=== PATIENT | female | born 1940 | race Caucasian/White ===

== ENCOUNTER 2019-06-15 09:16 | Observation (INO) | payer MEDICARE, SELFPAY ==
[2019-06-15] VITALS (39 sets, daily range): BP systolic 138–173; BP diastolic 74–94; PULSE 62–82; RESP 16–25; TEMP 36.5–37.1; O2SAT 93–98; BMI 34.0
--- NOTE | 2019-06-15 09:31 | ED_ITS ---
HPI - General Adult General: Chief complaint: General Medical Stated complaint: SENT BY DR JONES Time Seen by Provider: 06/15/19 09:31 Source: patient Mode of arrival: ambulatory Limitations: no limitations History of Present Illness: HPI narrative: 78-year-old female patient comes in today for concerns elevated INR. Patient had lab work done at Dr. Hoyos's office yesterday and was contacted this morning to come to the emergency room for reevaluation of lab work. Patient denies any bleeding but does have a bruise to her right thigh. Patient appears well. Patient appears in no pain. Review of Systems General: Reports: 10 or more systems reviewed and unremarkable except in HPI and below Skin/Breast: Reports: other (bruise right thigh) PFSH ED PFSH: Statuses (acute, chronic, etc) shown below reflect problem list status as previously entered and may not be historically accurate Social History Smoking and tobacco status: never smoked Physical Exam Const: COMMON NORMALS: no apparent distress and oriented x3 GENERAL APPEARANCE: cooperative HENMT: COMMON NORMALS: normocephalic, external ears normal, EAC's normal, TM's normal bilaterally and external nose normal HEAD & SCALP: normal to inspection and normocephalic FACE & SINUS: normal facial exam NOSE: external nose normal GENERAL EAR: hearing not grossly impaired EXTERNAL EAR: Yes external ears normal EXTERNAL AUDITORY CANAL: EAC's normal TYMPANIC MEMBRANE: TM's normal bilaterally MOUTH: oral and palatal mucosa normal THROAT: posterior oropharynx normal Eye: COMMON NORMALS: PERRL and EOMs intact bilaterally PUPIL: Yes PERRL Neck/C-Spine: COMMON NORMALS: full ROM and no lymphadenopathy Lymph: LYMPHATIC: no lymphedema noted Chest: COMMONS NORMALS: inspection of chest normal and palpation of chest normal Resp: COMMON NORMALS: normal respiratory effort and clear to auscultation bilaterally AUSCULTATION: clear to auscultation bilaterally Cardio: COMMON NORMALS: regular rate and regular rhythm RATE: regular rate RHYTHM: regular rhythm GI: COMMON NORMALS: normal to inspection, nondistended, normoactive bowel sounds and non-tender : COMMON NORMALS: Yes no CVA tenderness BLADDER/KIDNEY EXAM: Yes no CVA tenderness Back/Pelvis: COMMON NORMALS: no CVA tenderness and thoracic and lumbar spine normal to inspection Extremity: COMMON NORMALS: normal to inspection GENERAL: No edema Neuro: COMMON NORMALS: oriented x3, moves all extremities and no focal motor deficits Psych: COMMON NORMALS: mental status grossly normal and cooperative Skin: NARRATIVE SKIN EXAM: quarter coin size bruise to right anterior thigh, no redness or swelling to the leg Course ED course: 1040, discussed with Dr. Simmons regarding abnormal lab with INR greater than 11, he agreed with plan and will discuss with hospitalist for admission to observation. Vital Signs: Vital signs: Vital Signs Temperature 97.7 F 06/15/19 09:21 Pulse Rate 62 06/15/19 11:45 Respiratory Rate 16 06/15/19 09:21 Blood Pressure 138/77 06/15/19 11:45 Pulse Oximetry 95 06/15/19 11:45 MDM - General Adult MDM Narrative: Medical decision making narrative: Patient was seen here for co ncerns of elevated INR from her primary care office. On exam patient appears well. Patient reports no bleeding. Patient does have a bruise to her right anterior thigh that is coin size approximately 3 cm in diameter. Patient denies any other injury or bruises. Respirations are even lungs are clear to auscultation. Differential diagnosis includes hypercoagulability due to warfarin therapy, mechanical heart valve, contusion to leg. Laboratory values notes some mild anemia at 10 and 32 H&H, alkaline phosphatase is slightly high at 140. PTT was 150, INR was 11. Patient was given 10 mg of vitamin K in the emergency room. Dr. Simmons was consulted for concern of abnormal labs and he agreed that patient needed admission for observation. Patient needs admission for monitoring of lab and reversal of hypercoagulability. Lab Data: Labs: Lab Results 06/15/19 06/15/19 06/15/19 Range/Units 09:49 09:49 09:49 WBC 11.2 H (4.0-10.0) 10^3/ uL RBC 3.62 L (4.1-5.3) 10^6/u L Hgb 10.0 L (11.5-15.3) g/dL Hct 32.0 L (37.0-47.0) % MCV 88.4 (81-99) fL MCH 27.6 L (28.0-34.0) pg MCHC 31.3 (30.0-36.0) g/dL RDW 15.1 (12.1-15.1) % Plt Count 449 H (130-400) 10^3/c mm MPV 8.5 (7.4-10.4) fL Neut % (Auto) 78.2 % Lymph % (Auto) 13.1 % Person % (Auto) 6.7 % Eos % (Auto) 1.0 % Baso % (Auto) 0.4 % Neut # (Auto) 8.8 H (1.8-7.7) 10^3/u L Lymph # (Auto) 1.5 (0.8-4.8) 10^3/u L Person # (Auto) 0.8 (0.2-0.9) 10^3/u L Eos # (Auto) 0.1 (0.0-0.8) 10^3/u L Baso # (Auto) 0.0 (0.0-0.1) 10^3/u L Nucleated RBC % (a uto) 0 % Nucleated RBCs # 0.0 /100WBC PT 96.70 H (10.5-13.3) SECO NDS INR 11.96 H* (0.8-1.2) APTT 156.0 H* (23.9-36.7) SECO NDS Sodium 138 (136-145) mmol/L Potassium 4.5 (3.5-5.1) mmol/L Chloride 101 (98-107) mmol/L Carbon Dioxide 28 (22-29) mmol/L Anion Gap 13.5 (5-19) BUN 22 (8-23) mg/dL Creatinine 0.9 (0.5-0.9) mg/dL Glucose 131 H (65-115) mg/dL Calcium 9.6 (8.5-10.5) mg/dL Total Bilirubin 0.4 (0.15-1.2) mg/dL AST 17 (0-32) U/L ALT 16 (0-33) U/L Alkaline Phosphata se 141 H (35-105) IU/L Total Protein 7.5 (6.6-8.7) g/dL Albumin 4.0 (3.5-5.2) g/dL Globulin 3.5 (1.3-4.6) g/dL Digoxin (0.6-1.2) ng/mL 06/15/19 Range/Units 09:49 WBC (4.0-10.0) 10^3/ uL RBC (4.1-5.3) 10^6/u L Hgb (11.5-15.3) g/dL Hct (37.0-47.0) % MCV (81-99) fL MCH (28.0-34.0) pg MCHC (30.0-36.0) g/dL RDW (12.1-15.1) % Plt Count (130-400) 10^3/c mm MPV (7.4-10.4) fL Neut % (Auto) % Lymph % (Auto) % Person % (Auto) % Eos % (Auto) % Baso % (Auto) % Neut # (Auto) (1.8-7.7) 10^3/u L Lymph # (Auto) (0.8-4.8) 10^3/u L Person # (Auto) (0.2-0.9) 10^3/u L Eos # (Auto) (0.0-0.8) 10^3/u L Baso # (Auto) (0.0-0.1) 10^3/u L Nucleated RBC % (a uto) % Nucleated RBCs # /100WBC PT (10.5-13.3) SECO NDS INR (0.8-1.2) APTT (23.9-36.7) SECO NDS Sodium (136-145) mmol/L Potassium (3.5-5.1) mmol/L Chloride (98-107) mmol/L Carbon Dioxide (22-29) mmol/L Anion Gap (5-19) BUN (8-23) mg/dL Creatinine (0.5-0.9) mg/dL Glucose (65-115) mg/dL Calcium (8.5-10.5) mg/dL Total Bilirubin (0.15-1.2) mg/dL AST (0-32) U/L ALT (0-33) U/L Alkaline Phosphata se (35-105) IU/L Total Protein (6.6-8.7) g/dL Albumin (3.5-5.2) g/dL Globulin (1.3-4.6) g/dL Digoxin 1.7 H (0.6-1.2) ng/mL Discharge Plan Discharge Patient Disposition: Placed in Observation Clinical Impression: Acquired hypercoagulable state, Mechanical heart valve present Condition: Stable Referrals: Danny Jones DO [Family Provider] - Coding Level of Care Code ED [employer] for Mike[employer] Fwd Exam Problem Focused
--- NOTE | 2019-06-15 09:39 | PC.NURSE ---
small bruise noted to right upper thigh on anterior portion
[2019-06-15 09:57] LABS: Basophils % 0.4 %; Eosinophils # 0.1 10^3/uL (0.0-0.8); Lymphocytes # 1.5 10^3/uL (0.8-4.8); Lymphocytes % 13.1 %; Mean Corpuscular HGB Conc 31.3 g/dL (30.0-36.0); Mean Corpuscular Hemoglobin 27.6 pg (28.0-34.0); Mean Corpuscular Volume 88.4 fL (81-99); Mean Platelet Volume 8.5 fL (7.4-10.4); Monocytes # 0.8 10^3/uL (0.2-0.9); Monocytes % 6.7 %; Neutrophils # 8.8 10^3/uL (1.8-7.7); Neutrophils % 78.2 %; Nucleated Red Blood Cells % 0 %; Platelet Count 449 10^3/cmm (130-400); Red Blood Count 3.62 10^6/uL (4.1-5.3); Red Cell Distribution Width 15.1 % (12.1-15.1); White Blood Count 11.2 10^3/uL (4.0-10.0)
[2019-06-15 10:16] LABS: Alanine Aminotransferase 16 U/L (0-33); Alkaline Phosphatase 141 IU/L (35-105); Anion Gap 13.5 (5-19); Aspartate Amino Transferase 17 U/L (0-32); Blood Urea Nitrogen 22 mg/dL (8-23); Calcium 9.6 mg/dL (8.5-10.5); Carbon Dioxide 28 mmol/L (22-29); Chloride 101 mmol/L (98-107); Globulin 3.5 g/dL (1.3-4.6); Glucose 131 mg/dL (65-115); Potassium 4.5 mmol/L (3.5-5.1); Sodium 138 mmol/L (136-145); Total Bilirubin 0.4 mg/dL (0.15-1.2); Total Protein 7.5 g/dL (6.6-8.7)
[2019-06-15 10:27] LABS: INR 11.96 (0.8-1.2)
[2019-06-15] MEDS: phytonadione (ADULT) 10 mg/mL Ampule 1 mL SUBCUT (11:15)
--- NOTE | 2019-06-15 11:24 | CTR_ITS ---
PROCEDURE INFORMATION: Exam: CTA Right Lower Extremity With Contrast Exam date and time: 06/15/2019 11:40 AM Age: 78 years old Clinical indication: Pain; Patient HX: Small hematoma to right thigh. Inr of 12. Patient on warfarin. TECHNIQUE: Imaging protocol: CTA images of the Right lower extremity with intravenous contrast using CT angiography protocol. 3D rendering: MIP and/or 3D reconstructed images were created by the technologist. Total DLP: 999.09 mGy-cm Radiation optimization: All CT scans at this facility use at least one of these dose optimization techniques: automated exposure control; mA and/or kV adjustment per patient size (includes targeted exams where dose is matched to clinical indication); or iterative reconstruction. Contrast material: OMNI 350; Contrast volume: 95 ml; Contrast route: 20G; COMPARISON: No relevant prior studies available. FINDINGS: Right femoral/popliteal arteries: No occlusion or significant stenosis. Right infrapopliteal arteries: No occlusion or significant stenosis. Other arteries: Regarding the vasculature, external iliac artery and common femoral artery are normal. Superficial femoral artery normal. Popliteal artery only faintly opacified. Stomach and bowel: Soft tissue prominence about the cecum/ascending colon. Recommend followup. 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 Soft tissues: Hematoma in the musculature of the proximal thigh likely the vastus lateralis with a small amount of contrast extravasation likely from a profunda branch. CT/CT angio [facility] [id number] IMPRESSION: 1. Hematoma in the musculature of the proximal thigh likely the vastus lateralis with a small amount of contrast extravasation likely from a profunda branch. Hematoma is rather ill-defined likely measuring approximately 3-5 cm. 2. 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 Severe degenerative changes in the knee most pronounced medially. 3. Soft tissue prominence about the cecum/ascending colon. Recommend followup. See image #1 series 3 Radiation Dose CTDIVOL = (mGy): DLP = 999.09 (mGy-cm)
[2019-06-15 11:38] LABS: Digoxin 1.7 ng/mL (0.6-1.2)
--- NOTE | 2019-06-15 11:47 | PC.NURSE ---
pt transported to CT with stretcher by tech
[2019-06-15] MEDS: iohexol 350 mg/mL 100 mL Btl IV (11:53)
[2019-06-15] MEDS: HYDROcodone-acetaminophen 5-325 mg Tablet 1 TAB PO (13:12)
--- NOTE | 2019-06-15 15:24 | P.HP_ITS ---
Providers/Chief Complaint Admitting Physician: Matthew Soto MD Chief Complaint: Supratherapeutic INR History of Present Illness Kimberly Masterson is a 78 year old female with past medical history of hypertension, atrial fibrillation, mitral valve replacement, on chronic Coumadin who was sent in to the hospital today by her primary care physician because of an elevated INR. Patient states he usually takes warfarin 3 mg every day for many years but her INR has been fluctuant recently so the medication was increased to 2 mg 2 weeks ago. Patient thinks she might have by mistake taken 1-1/2 tablets every day for last 1 week instead of the prescribed medications. Patient denies of having bleeding from any place except occasional epistaxis. She denies of having hematemesis, melena, nausea, vomiting, palpitations, headache. Patient does complain of dizziness every morning for last 2 days. She denies of having any fall, trauma, loss of consciousness. In the ER her INR was found to be over 11 and she had a CTA done which showed hematoma in the musculature of right thigh. Review of Systems Const: Denies: fever, chills, body aches, change in appetite, malaise, night sweats, diaphoresis, change in sleep pattern, daytime sleepiness or snoring Eyes: Denies: change in vision, blurry vision, photophobia, eye discomfort or eye discharge ENMT: Denies: throat pain, enlarged tonsils, hoarseness, mouth pain, oral sores/lesions, dry mouth, tinnitus, nasal congestion or post nasal drip Card: Denies: chest pain, palpitations, irregular heart rhythm, edema, swelling of feet/ankles, lightheadedness, syncope, pre-syncope, shortness of breath on exertion, shortness of breath when lying down, leg pain with exertion or bluish discoloration of hands/feet Resp: Denies: shortness of breath, productive cough, non-productive cough, wheezing, stridor, pain on inspiration, change in phlegm color, coughing up blood or chest congestion GI: Denies: abdominal pain, nausea, vomiting, vomiting blood, coffee grounds in vomit, difficulty swallowing, heartburn/indigestion, diarrhea, constipation, bloating, cramping, change in bowel habits, painful bowel movements, blood in stool or black tarry stool : Denies: flank pain, painful urination, urinary frequency, urinary urgency, urinary hesitancy, nighttime urination or blood in urine Musc: Denies: neck pain, back pain, extremity pain, joint pain, joint swelling, redness, joint stiffness or limited range of motion Neuro: Reports: dizziness; Denies: headache, numbness in extremities, weakness in extremities, changes in sensation, lack of coordination, difficulty walking, frequent falls, vertigo, confusion, slurred speech, difficulty communicating thoughts or seizure-like activity Psych: Denies: anxiety, depression, mood swings, panic attacks, hopelessness or irritability Endo: Denies: excessive urination, excessive thirst, tired all the time, cold intolerance, excessive sweating, flushing or heat intolerance Bertin/Lymph: Denies: easy bruising or easy bleeding All/Imm: Denies: tongue swelling, facial swelling or acute wheezing Medications/Allergies Home Medications Medication Instructions Recorded Confirmed Last Taken Type atorvastatin 10 mg PO QPM 06/15/19 06/15/19 06/14/19 History carvedilol 3.125 mg PO BID 06/15/19 06/15/19 06/14/19 History digoxin 250 mcg PO DAILY 06/15/19 06/15/19 06/14/19 History furosemide 40 mg PO QAM 06/15/19 06/15/19 06/14/19 History gabapentin 400 mg PO TID 06/15/19 06/15/19 06/14/19 History lorazepam 1 - 2 mg PO BID 06/15/19 06/15/19 06/14/19 History metformin 500 mg PO BID 06/15/19 06/15/19 06/14/19 History omeprazole 20 mg PO DAILY 06/15/19 06/15/19 06/14/19 History potassium chloride 20 meq PO DAILY 06/15/19 06/15/19 06/14/19 History spironolactone 25 mg PO DAILY 06/15/19 06/15/19 06/14/19 History warfarin 4 mg PO DAILY 06/15/19 06/15/19 06/14/19 History Allergies Allergy/AdvReac Type Severity Reaction Status Date / Time No Known Allergies Allergy Verified 06/15/19 09:30 PFSH Acute PFSH: Statuses (acute, chronic, etc) shown below reflect problem list status as previously entered and may not be historically accurate Medical History (Updated 06/15/19 @ 15:29 by Matthew Soto MD) Atrial fibrillation (Acute) GERD (gastroesophageal reflux disease) (Acute) HTN (hypertension) (Acute) Surgical History (Updated 06/15/19 @ 15:27 by Matthew Soto MD) H/O mitral valve replacement (Acute) Family History (Updated 06/15/19 @ 15:29 by Matthew Soto MD) Other Hypertension Social History (Updated 06/15/19 @ 15:29 by Matthew Soto MD) Smoking and tobacco status: never smoked Alcohol intake: never Substance/Drug Use: never Household members: none Housing: House Vitals/I&O/Wt Last Vital Signs Temp 97.7 F 06/15/19 14:51 Pulse 73 06/15/19 14:51 Resp 21 H 06/15/19 14:51 BP 145/87 06/15/19 14:51 Pulse Ox 93 06/15/19 14:51 Weight last 48 hrs Weight 87.09 kg Physical Exam Narrative: EXAM NARRATIVE: General: No acute distress, AO x3 HEENT: PERRLA, pupils bilaterally equal and reactive Chest: Normal vesicular breath sounds, no added sounds, equal good air entry bilaterally CVS: S1-S2 regular, no murmurs, no tachycardia, no gallops, no rubs Abdomen: Soft, nontender, no organomegaly, bowel sounds present Neuro: No focal deficits, no facial deformity, AO x3, power 5/5 in all limbs Extremities: Tender right thigh with a bruise in the anterior region. Bilateral pulses equal. Data : 06/15/19 09:49 06/15/19 09:49 A&P Assessment and plan (1) Supratherapeutic INR: Status: Acute Code(s): R79.1 - Abnormal coagulation profile (2) Mechanical heart valve present: Status: Acute Code(s): Z95.2 - Presence of prosthetic heart valve (3) HTN (hypertension): Status: Acute Code(s): I10 - Essential (primary) hypertension (4) H/O mitral valve replacement: Status: Acute Code(s): Z95.2 - Presence of prosthetic heart valve Additional A&P Information Supratherapeutic INR: Target INR 2-3. Hold off Coumadin for now. Given an active hematoma in the right thigh will reverse her INR with 2 units of FFP. Patient already received vitamin K in the ER. Repeat INR after 2 units of FFP. We will hold off on any further vitamin K for now until repeat INR. Fall precautions, seizure precautions. Bedrest. Patient is complaining of mild dizziness on and off. Will check a CT head to rule out intracranial hemorrhage. We will try to keep her systolic blood pressure less than 160 mmHg. Will give hydralazine 5 mg every 4 hours as needed for systolic blood pressure more than 160 mmHg. Hematoma: Most likely reason for anemia. Most likely due to supratherapeutic IN R. Ice pack. Anemia: We will check iron panel. We will transfuse this hemoglobin less than 8. We will do blood type. Hypertension: Continue home dose of carvedilol. Atrial fibrillation: Patient is in rate controlled rate right now. Continue home dose of carvedilol. Digoxin level is elevated. We will hold off on digoxin for now. Will check repeat digoxin level tomorrow morning. Patient would most likely need digoxin every other day now on discharge. Telemetry monitoring. History of mitral valve replacement: Did discuss in detail with the patient that reversing the INR can sometimes potentially lead to stroke valve. Patient states she is understands the risk and is agreeable to the plan of treatment. Keep saturation 92%. Continue with home dose of Lasix and spironolactone. Type 2 diabetes mellitus: Blood sugar checks with meals and at bedtime. Continue on home dose of metformin for now. We will hold off on insulin sliding scale because that would mean multiple subcutaneous injections which can potentiate her to have more hematomas given supratherapeutic INR. Full code. Cardiac diet. Hold off on mechanical and therapeutic prophylaxis for DVT. Reason is supratherapeutic INR. Attestations Medical Necessity Statement*: Patient would need admission for most likely more than 2 midnights for supratherapeutic INR. 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
--- NOTE | 2019-06-15 15:36 | CTR_ITS ---
PROCEDURE INFORMATION: Exam: CT Head Without Contrast Exam date and time: 06/15/2019 5:30 PM Age: 78 years old Clinical indication: Other: R/O stroke; Additional info: Rule out stroke TECHNIQUE: Imaging protocol: Computed tomography of the head without contrast. Total DLP: 818.11 mGy-cm Radiation optimization: All CT scans at this facility use at least one of these dose optimization techniques: automated exposure control; mA and/or kV adjustment per patient size (includes targeted exams where dose is matched to clinical indication); or iterative reconstruction. COMPARISON: CT head wo con* [id number] 07/24/2014 12:53 AM FINDINGS: Brain: There is encephalomalacia in the posterior left frontal/parietal lobe. There is mild diffuse volume loss and periventricular low density compatible with small vessel disease changes. There is no acute hemorrhage, edema or mass effect. 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 Ventricles: Normal. No ventriculomegaly. Bones/joints: Unremarkable. No acute fracture. Sinuses: Visualized sinuses are unremarkable. No fluid levels. Mastoid air cells: Visualized mastoid air cells are well aerated. Soft tissues: Unremarkable. CT/CT head wo con* [id number] IMPRESSION: Chronic findings as above. No acute intracranial abnormality. Radiation Dose CTDIVOL = (mGy): DLP = 818.11 (mGy-cm)
[2019-06-15 16:08] LABS: Thyroid Stimulating Hormone 1.75 uIU/mL (0.27-4.20)
[2019-06-15 16:19] LABS: Glucose Point of Care 137 mg/dL (70-110)
[2019-06-15 16:53] LABS: Iron 39 ug/dL (37-145); Percent Saturation 13.1 % (20-50); Total Iron Binding Capacity 297 mcg/dl; Unsaturated Iron Binding 258 ug/dL (112-347)
[2019-06-15] MEDS: metformin 500 mg Tablet PO (19:12)
[2019-06-15] MEDS: LORazepam 2 mg Tablet 1 MG PO (19:12)
[2019-06-15] MEDS: atorvastatin 40 mg Tablet 20 MG PO (19:12)
[2019-06-15] MEDS: carvedilol 3.125 mg Tablet PO (19:13)
[2019-06-15] MEDS: gabapentin 400 mg Capsule PO (20:56)
[2019-06-16] VITALS (8 sets, daily range): BP systolic 138–153; BP diastolic 85–98; PULSE 78–90; RESP 17–27; TEMP 36.8; O2SAT 92–96; BMI 34.9
[2019-06-16 00:59] LABS: Hematocrit 28.4 % (37.0-47.0); Hemoglobin 8.7 g/dL (11.5-15.3)
--- NOTE | 2019-06-16 01:12 | PC.NURSE ---
DR WAS CALLED BECAUSE PT C/O BACK PAIN. DR ORDERED 1MG MORPHINE IVP X1. RN WILL ADMINISTER PUSH. WILL CONTINUE TO MONITOR.
[2019-06-16 01:25] LABS: INR 1.55 (0.8-1.2)
[2019-06-16] MEDS: morphine 4 mg/mL SDV 1 mL 1 MG IVP (01:29)
[2019-06-16 03:45] LABS: Basophils % 0.3 %; Eosinophils # 0.1 10^3/uL (0.0-0.8); Hematocrit 29.8 % (37.0-47.0); Hemoglobin 9.3 g/dL (11.5-15.3); Lymphocytes # 1.6 10^3/uL (0.8-4.8); Lymphocytes % 12.1 %; Mean Corpuscular HGB Conc 31.2 g/dL (30.0-36.0); Mean Corpuscular Hemoglobin 28.9 pg (28.0-34.0); Mean Corpuscular Volume 92.5 fL (81-99); Mean Platelet Volume 9.2 fL (7.4-10.4); Monocytes # 0.9 10^3/uL (0.2-0.9); Monocytes % 6.4 %; Neutrophils # 10.7 10^3/uL (1.8-7.7); Neutrophils % 79.6 %; Nucleated Red Blood Cells % 0 %; Platelet Count 457 10^3/cmm (130-400); Red Blood Count 3.22 10^6/uL (4.1-5.3); Red Cell Distribution Width 15.3 % (12.1-15.1); White Blood Count 13.5 10^3/uL (4.0-10.0)
[2019-06-16 03:57] LABS: Anion Gap 16.5 (5-19); Blood Urea Nitrogen 16 mg/dL (8-23); Calcium 9.7 mg/dL (8.5-10.5); Carbon Dioxide 28 mmol/L (22-29); Chloride 96 mmol/L (98-107); Glucose 143 mg/dL (65-115); Osmolality Calculated 281 mOsm/kg (285-295); Potassium 4.5 mmol/L (3.5-5.1); Sodium 136 mmol/L (136-145)
[2019-06-16 04:03] LABS: INR 1.48 (0.8-1.2)
[2019-06-16] MEDS: FUROsemide 40 mg Tablet PO (05:41)
[2019-06-16 08:20] LABS: Digoxin 1.3 ng/mL (0.6-1.2)
[2019-06-16] MEDS: ipratropium-albuterol 3 mL Neb INHALATION (08:49)
[2019-06-16] MEDS: spironolactone 25 mg Tablet PO (09:32)
[2019-06-16] MEDS: pantoprazole DR 40 mg Tablet PO (09:32)
[2019-06-16] MEDS: gabapentin 400 mg Capsule PO (09:32)
[2019-06-16] MEDS: carvedilol 3.125 mg Tablet PO (09:32)
[2019-06-16] MEDS: metformin 500 mg Tablet PO (09:34)
[2019-06-16] MEDS: acetaminophen 325 mg Tablet PO (09:37)
--- NOTE | 2019-06-16 09:47 | PM.DCS ---
Discharge Providers Date of Admission: 06/15/19 12:38 Date of Discharge: Date of Discharge: June 16, 2019 Attending Provider at Admission: Matthew Soto MD Attending Provider at Discharge: Matthew Soto MD Diagnoses at Discharge Discharge Diagnosis (1) Supratherapeutic INR: Status: Acute (2) Mechanical heart valve present: Status: Acute (3) HTN (hypertension): Status: Acute (4) H/O mitral valve replacement: Status: Acute Reason for Visit Reason for Visit: Reason For Visit: Supratherapeutic INR Hospital Course Discharge Summary: Kimberly Masterson is a 78 year old female with past medical history of hypertension, atrial fibrillation, mitral valve replacement, on chronic Coumadin who was sent in to the hospital today by her primary care physician because of an elevated INR. Patient states he usually takes warfarin 3 mg every day for many years but her INR has been fluctuant recently so the medication was increased to 2 mg 2 weeks ago. Patient thinks she might have by mistake taken 1-1/2 tablets every day for last 1 week instead of the prescribed medications. Patient denies of having bleeding from any place except occasional epistaxis. In the ER patient was found to have tenderness in the thyroid so a CT scan was done which revealed hematoma in thigh measuring up to 3 to 5 cm. Patient's INR was reversed in the ER by FFP and vitamin K. Patient's INR responded well to the reversal and patient remained in sinus rhythm without any shortness of breath or nausea or vomiting. Given the history of mitral valve replacement patient was started back on warfarin on the day of discharge but was not made therapeutic due to active hematoma from 2 days ago. Patient has been advised to take 3 and 4 mg of Coumadin every alternate days. As patient lives by herself and takes care of her own medications to prevent from further confusion home health services were provided to the patient. Patient remained hemodynamically stable, at baseline oxygen supplementation of room air without any nausea or vomiting or any other bleeding events during her hospitalization and is being discharged on medications as described above. Patient has been advised to repeat an INR in 1 week and follow-up with her primary care physician. Physical Exam Narrative: EXAM NARRATIVE: General: No acute distress, AO x3 HEENT: PERRLA, pupils bilaterally equal and reactive Chest: Normal vesicular breath sounds, no added sounds, equal good air entry bilaterally CVS: S1-S2 regular, no murmurs, no tachycardia, no gallops, no rubs Abdomen: Soft, nontender, no organomegaly, bowel sounds present Neuro: No focal deficits, no facial deformity, AO x3, power 5/5 in all limbs Extremities: Tender right thigh with a bruise in the anterior region. Bilateral pulses equal. Discharge Data Data Completed and Pending: Completed Studies During Hospitalization Category Date Time Status CT angio LE BI [id number] Stat Cat Scan 06/15/19 11:[address] head wo con* [id number] Routine Cat Scan 06/15/19 15:36 Completed Pending at discharge Category Date Time Status Prothrombin Time INR AM LABS Lab 06/17/19 04:00 Ordered Prothrombin Time INR AM LABS Lab 06/18/19 04:00 Ordered Labs from last 24 hours 06/16/19 06/16/19 06/16/19 03:08 03:08 03:08 WBC RBC Hgb Hct MCV MCH MCHC RDW Plt Count MPV Neut % (Auto) Lymph % (Auto) [place] % (Auto) Eos % (Auto) Baso % (Auto) Neut # (Auto) Lymph # (Auto) [place] # (Auto) Eos # (Auto) Baso # (Auto) Nucleated RBC % (a uto) Nucleated RBCs # PT 18.40 H D INR 1.48 H APTT Sodium 136 Potassium 4.5 Chloride 96 L Carbon Dioxide 28 Anion Gap 16.5 BUN 16 Creatinine 0.8 Glucose 143 H POC Glucose Calculated Osmolal ity 281 L Calcium 9.7 Iron TIBC % Saturation Unsat Iron Binding Total Bilirubin AST ALT Alkaline Phosphata se Total Protein Albumin Globulin TSH Digoxin 1.3 H Blood Type 06/16/19 06/15/19 06/15/19 03:08 16:05 15:25 WBC 13.5 H RBC 3.22 L Hgb 9.3 L Hct 29.8 L MCV 92.5 MCH 28.9 MCHC 31.2 RDW 15.3 H Plt Count 457 H MPV 9.2 Neut % (Auto) 79.6 Lymph % (Auto) 12.1 [place] % (Auto) 6.4 Eos % (Auto) 1.0 Baso % (Auto) 0.3 Neut # (Auto) 10.7 H Lymph # (Auto) 1.6 [place] # (Auto) 0.9 Eos # (Auto) 0.1 Baso # (Auto) 0.0 Nucleated RBC % (a uto) 0 Nucleated RBCs # 0.0 PT INR APTT Sodium Potassium Chloride Carbon Dioxide Anion Gap BUN Creatinine Glucose POC Glucose 137 Calculated Osmolal ity Calcium Iron TIBC % Saturation Unsat Iron Binding Total Bilirubin AST ALT Alkaline Phosphata se Total Protein Albumin Globulin TSH Digoxin Blood Type B Positive 06/15/19 06/15/19 06/15/19 09:49 09:49 09:49 WBC RBC Hgb Hct MCV MCH MCHC RDW Plt Count MPV Neut % (Auto) Lymph % (Auto) [place] % (Auto) Eos % (Auto) Baso % (Auto) Neut # (Auto) Lymph # (Auto) [place] # (Auto) Eos # (Auto) Baso # (Auto) Nucleated RBC % (a uto) Nucleated RBCs # PT INR APTT Sodium Potassium Chloride Carbon Dioxide Anion Gap BUN Creatinine Glucose POC Glucose Calculated Osmolal ity Calcium Iron 39 TIBC 297 % Saturation 13.1 L Unsat Iron Binding 258 Total Bilirubin AST ALT Alkaline Phosphata se Total Protein Albumin Globulin TSH 1.75 Digoxin 1.7 H Blood Type 06/15/19 06/15/19 06/15/19 09:49 09:49 09:49 WBC 11.2 H RBC 3.62 L Hgb 10.0 L Hct 32.0 L MCV 88.4 MCH 27.6 L MCHC 31.3 RDW 15.1 Plt Count 449 H MPV 8.5 Neut % (Auto) 78.2 Lymph % (Auto) 13.1 [place] % (Auto) 6.7 Eos % (Auto) 1.0 Baso % (Auto) 0.4 Neut # (Auto) 8.8 H Lymph # (Auto) 1.5 [place] # (Auto) 0.8 Eos # (Auto) 0.1 Baso # (Auto) 0.0 Nucleated RBC % (a uto) 0 Nucleated RBCs # 0.0 PT 96.70 H INR 11.96 H* APTT 156.0 H* Sodium 138 Potassium 4.5 Chloride 101 Carbon Dioxide 28 Anion Gap 13.5 BUN 22 Creatinine 0.9 Glucose 131 H POC Glucose Calculated Osmolal ity Calcium 9.6 Iron TIBC % Saturation Unsat Iron Binding Total Bilirubin 0.4 AST 17 ALT 16 Alkaline Phosphata se 141 H Total Protein 7.5 Albumin 4.0 Globulin 3.5 TSH Digoxin Blood Type 06/15/19 06/15/19 00:40 00:40 WBC RBC Hgb 8.7 L Hct 28.4 L MCV MCH MCHC RDW Plt Count MPV Neut % (Auto) Lymph % (Auto) [place] % (Auto) Eos % (Auto) Baso % (Auto) Neut # (Auto) Lymph # (Auto) [place] # (Auto) Eos # (Auto) Baso # (Auto) Nucleated RBC % (a uto) Nucleated RBCs # PT 19.10 H INR 1.55 H APTT Sodium Potassium Chloride Carbon Dioxide Anion Gap BUN Creatinine Glucose POC Glucose Calculated Osmolal ity Calcium Iron TIBC % Saturation Unsat Iron Binding Total Bilirubin AST ALT Alkaline Phosphata se Total Protein Albumin Globulin TSH Digoxin Blood Type Vitals: Last Vital Signs Temp 98.3 F 06/16/19 07:11 Pulse 88 06/16/19 08:50 Resp 20 H 06/16/19 08:50 BP 144/85 06/16/19 07:11 Pulse Ox 96 06/16/19 08:50 Discharge Plan Discharge Patient Disposition: Home Health Service Condition: Stable Prescriptions: New bisacodyl 5 mg Tablet,Delayed Release (Dr/Ec) 10 mg PO DAILY PRN (Reason: Constipation) Qty: 14 RF: 0 warfarin 3 mg tablet 3 mg PO [id number] Qty: 30 RF: 0 warfarin 4 mg tablet 4 mg PO QMWF Qty: 30 RF: 0 Continued furosemide 40 mg tablet 40 mg PO QAM RF: 0 metformin 500 mg tablet 500 mg PO BID RF: 0 atorvastatin 10 mg tablet 10 mg PO QPM RF: 0 gabapentin 400 mg capsule 400 mg PO TID RF: 0 spironolactone 25 mg tablet 25 mg PO DAILY RF: 0 carvedilol 3.125 mg tablet 3.125 mg PO BID RF: 0 lorazepam 2 mg tablet 1 - 2 mg PO BID RF: 0 omeprazole 20 mg capsule,delayed release(DR/EC) 20 mg PO DAILY RF: 0 potassium chloride 20 mEq Tablet Extended Release 20 meq PO DAILY RF: 0 Changed digoxin 250 mcg (0.25 mg) tablet 250 mcg PO EVERY OTHER DAY Qty: 30 RF: 0 Discontinued warfarin 4 mg tablet 4 mg PO DAILY RF: 0 Discharge Orders: Discharge Order (Routine); Ordered 06/16/19 Ordered By: Matthew Soto Referrals: Danny Khan DO [Family Provider] - 7-10 days (You will have a hospital follow up appointment with Dr. Khan within 7-10 days. [facility] will be calling you to arrange an appointment date and time. If you don't hear from them by Wednesday evening please call the office. [place]:[phone]) Discharge Diet: Cardiac Discharge Activity: Resume usual activity Patient Instructions: Warfarin (By mouth), Laxative, Stimulant (By mouth) Activity Restrictions/Additional Instructions: Repeat INR in 1 week and follow-up with your primary care physician Discharge Date/Time: 06/16/19 15:10 Discharge Attestations Time Spent in Discharge Care*: greater than 30 min Specific Discharge Activities: Specific discharge activities: educating patient and discussing with egg caser/social workers/dc planners Status at Discharge: Cognitive status at discharge: cognitively intact, Behavioral status at discharge: cooperative, Functional status at discharge: independent ambulation Overall status at discharge: patient is back to baseline Quality Metrics Clinical Quality Measures During this hospital stay, did patient experience: None Coding Level of Care Code Acute Editor Trade Journal for Chg Fwd Diagnoses Supratherapeutic INR R79.1 Mechanical heart valve present Z95.2 HTN (hypertension) I10 H/O mitral valve replacement Z95.2
[2019-06-16 11:41] LABS: Glucose Point of Care 152 mg/dL (70-110)
--- NOTE | 2019-06-16 13:22 | PC.CHAP ---
Pastoral Care Encounter/Spiritual Assessment Type of Contact [] Declined package handler visit [] Patient/Family/Request visit [] Outpatient visit [] Follow-up visit [] Physician referral [] Code/Alert [x] Routine visit [] Staff referral [] Actively dying [] Patient sleeping [] Family support [] [] Out of room [] Palliative care [] [] Receiving care in room [] Pre-surgical visit [] Trauma [] Long length of stay [] ICU visit [] Other: Relational/Emotional Strength [x] Patient feels connected with others/family/visitors/staff [] Distress [] Loneliness/isolation [] Abandonment Spirituality of Patient [x] Person of Gretchen [] Attends Confucianism of their Gretchen [x] Believes in Prayer [] Reads Bible or Spiritism materials [] There are Spiritual issues to be addressed Senior Technical Business Analyst Interventions [x] Prayer [x] Active listening [x] Non-anxious presence [x] Spiritual/emotional support [] Crisis/trauma care [] Spiritual counseling [] Bereavement support [] Provided bereavement packet [] Provided Bible/devotional materials [] Provided toy/stuffed animal, coloring book to patient or family member [] Provided Communion [] Anointing/[place] [] Salvation [x] Completed spiritual assessment [] Other: Impact on Illness or Injury [] Angry [] Fearful [] Anxious [] Often cries [] Exhaustion [] Unable to work [] Unable to attend yazidism [] Unable to walk/stand [] Unable to read [] Unable to drive [] Unable to eat/drink [] Unable to sleep [] Unable to be with family [] Patient intubated [x] Other: limited activities to to pt's age Summary Pt just wants to get well and go home NICK[place]. Senior Technical Business Analyst Yumiko Walker Time spent with patient 9 minutes
[2019-06-16] MEDS: warfarin 2 mg Tablet 4 MG PO (13:54)
== END 2019-06-16 15:10 | disposition home health service (06) ==
LOC: ER 11:20 → CSU 15:25
PROVIDERS: Nurse Practitioner Family; Admitting Provider Student in an Organized Health Care Education/Training Program; Emergency Provider Family Medicine; Family Provider Family Medicine; Visit Provider Student in an Organized Health Care Education/Training Program
DX: R79.1 Abnormal coagulation profile (principal); Z95.2 Presence of prosthetic heart valve; I10 Essential (primary) hypertension; Z79.01 Long term (current) use of anticoagulants; I48.91 Unspecified atrial fibrillation; K21.9 Gastro-esophageal reflux disease without esophagitis; Z82.49 Family history of ischemic heart disease and other diseases of the circulatory system; E11.9 Type 2 diabetes mellitus without complications
CPT/HCPCS: 12345; 36415; 36416; 36430; 70450; 73706; 80048; 80053; 80162; 82962; 83540; 83550; 84443; 85014; 85018; 85025; 85610; 85730; 86900; 94640; 94664; 96372; 96374; 99282; 99285; G0378; J2270; J3430; P9017; Q9967

== ENCOUNTER 2019-09-04 11:06 | Outpatient (CLI) | payer MEDICARE, SELFPAY ==
--- NOTE | 2019-09-04 11:44 | US_ITS ---
WS: [id number] Ultrasound RIGHT knee. HISTORY: Bruising and swelling and pain. Possible aspiration. Ultrasound is performed over the anterior, posterior lateral aspects of the RIGHT knee. There is a ve ry small complex anterior joint effusion. The area of soft tissue bruising demonstrates no liquefied hematoma. There is increased echogenicity which is probably an intramuscular hematoma. US/US soft tissue/extremity [id number] IMPRESSION: 1. Minimally complex suprapatellar joint effusion. 2. In the area of pain and bruising there is soft tissue fullness but no lique fied hematoma. There is no collection for aspiration at this time. 3. This was explained to the patient and report called to Dr. Khan
== END 2019-09-04 11:07 | disposition home or self-care (01) ==
LOC: RAD 11:22
PROVIDERS: Family Provider Family Medicine; PCP Family Medicine; Visit Provider Family Medicine
DX: Z86.2 Personal history of diseases of the blood and blood-forming organs and certain disorders involving the immune mechanism (principal); Z79.01 Long term (current) use of anticoagulants; T14.8XXA Other injury of unspecified body region, initial encounter; X58.XXXA Exposure to other specified factors, initial encounter; M25.469 Effusion, unspecified knee
CPT/HCPCS: 76882

== ENCOUNTER 2020-01-25 11:47 | Emergency (ER) | payer MEDICARE, SELFPAY ==
[2020-01-25 12:10] VITALS: BP 132/79; PULSE 69; RESP 18; TEMP 36.3; O2SAT 95; BMI 32.5
--- NOTE | 2020-01-25 12:28 | ED_ITS ---
HPI - Recheck/Abnormal Lab/Rx General: Chief Complaint: Recheck/Abnormal Lab/Rx Stated Complaint: PROTONE HIGH Time Seen by Provider: 01/25/20 12:23 History of Present Illness: HPI narrative: 79-year-old female patient presents to the emergency department with complaints of elevated PT/INR, she remains on Coumadin, warfarin for her [facility] valve she had placed in 1986. INR was found to be elevated at Dr. Hoyos's office. She was sent here for further e valuation. She reports right knee pain since Wednesday, no known injury. She reports swelling and pain with ambulation. She denies further complaints upon exam. MD complaint: other (Elevated INR) Associated symptoms: other (Right knee pain) Treatments prior to arrival: cold therapy Review of Systems General: Reports: 10 or more systems reviewed and unremarkable except in HPI and below Const: Denies: fever(s), chills or diaphoresis Eyes: Denies: blurry vision or eye redness ENMT: Denies: throat pain, dental pain or disequilibrium Card: Denies: chest pain, palpitations or irregular heart rhythm Resp: Denies: dyspnea, productive cough, non-productive cough or wheezing GI: Denies: abdominal pain, nausea or vomiting : Denies: difficulty voiding or dysuria Musc: Reports: joint swelling (Right knee) and joint stiffness (Right knee); Denies: neck pain, back pain, joint redness or joint warmth Skin/Breast: Denies: rash or pruritus Neuro: Denies: headache(s), weakness in extremities or behavioral changes Bertin/Lymph: Denies: easy bruising PFS ED PFSH: Medical History (Updated 01/25/20 @ 14:14 by CRISTINA Schmidt) Atrial fibrillation GERD (gastroesophageal reflux disease) HTN (hypertension) Surgical History (Updated 06/15/19 @ 15:27 by Matthew Soto MD) H/O mitral valve replacement Family History (Updated 06/15/19 @ 15:29 by Matthew Soto MD) Other Hypertension Social History (Updated 06/15/19 @ 15:29 by Matthew Soto MD) Smoking and tobacco status: never smoked Alcohol intake: never Household members: none Housing: House Physical Exam Const: COMMON NORMALS: no acute distress, patient oriented x3, healthy appearing and alert GENERAL APPEARANCE: cooperative, comfortable and well hydrated HENMT: COMMON NORMALS: normocephalic, Normal external nose present and moist oral mucous membranes HEAD & SCALP: normocephalic NOSE: Normal external nose present Eye: COMMON NORMALS: Equal, round and reactive pupils present and EOMs intact bilaterally GENERAL EYE: appearance normal, both eyes and all related structures PUPIL: Yes Equal, round and reactive pupils present Neck/C-Spine: COMMON NORMALS: full ROM and no lymphadenopathy GENERAL: Yes normal visual inspection and Yes trachea midline CERVICAL SPINE: Yes cervical ROM normal Lymph: LYMPHATIC: no lymphadenopathy noted Chest: COMMONS NORMALS: normal inspection of the chest Resp: COMMON NORMALS: normal respiratory effort and clear to auscultation bilaterally EFFORT & INSPECTION: Yes able to speak in complete sentences, No tachypneic and No respiratory distress AUSCULTATION: clear to auscultation bilaterally Cardio: COMMON NORMALS: regular rate, regular rhythm and Peripheral pulses 2+ throughout RATE: regular rate RHYTHM: regular rhythm HEART SOUNDS: Murmur heart sound present PERIPHERAL PULSES: Peripheral pulses 2+ throughout GI: COMMON NORMALS: Soft to palpation and non-tender INSPECTION: Yes normal to inspection PALPATION: Yes Soft to palpation : COMMON NORMALS: Yes no CVA tenderness BLADDER/KIDNEY EXAM: Yes no CVA tenderness Back/Pelvis: COMMON NORMALS: no CVA tenderness and thoracic and lumbar spine normal to inspection Extremity: COMMON NORMALS: capillary refill normal GENERAL: Yes normal exam except as noted RIGHT LOWER EXTREMITY: Yes knee joint Right knee: Yes inspection (Edema/swelling medially), Yes palpation (Negative erythema/increased warmth, pain to the medial area with palpation), Yes ROM (Limited secondary to pain) and Yes neurovascular exam (Distally intact without deficit) Neuro: COMMON NORMALS: patient oriented x3 and no focal motor deficits SENSORIUM/ORIENTATION: Yes alert Psych: COMMON NORMALS: mental status grossly normal, Normal thought process present and cooperative ACTIVITY/MOTOR BEHAVIOR: Yes appropriate eye contact THOUGHT PROCESS: Normal thought process present Skin: COMMON NORMALS: no rashes or lesions noted and turgor normal GENERAL SKIN EXAM: no rashes or lesions noted and turgor normal RASHES: no rashes TRAUMA: no lacerations or abrasions OTHER: negative ecchymosis Course ED course: 79-year-old female patient presents to the emergency department with complaints of right knee pain and hypercoagulability. INR last p.m. was noted to be 9. Repeat INR today 5.63. Primary care provider was notified of INR and other serology results, no new orders, patient agrees to follow-up with Dr. Restrepo's office tomorrow for repeat serology testing. Advised to monitor for bleeding, advised to return to the emergency department if she experience bleeding. She is also advised to stop Coumadin until okayed with primary care provider. Consultations: Consultation #1: Dr Restrepo - notified of lab findings, INR 5.63, no orders for vitamin K at this time. Advised patient have repeat INR tomorrow in the office - advised to hold coumadin. Time: 14:00 Vital Signs: Vital signs: Vital Signs Temperature 97.3 F L 01/25/20 12:10 Pulse Rate 69 01/25/20 12:10 Respiratory Rate 18 01/25/20 12:10 Blood Pressure 132/79 01/25/20 12:10 Pulse Oximetry 95 01/25/20 12:10 MDM - Recheck/Abnormal Lab/Rx Lab Data: Labs: Lab Results 01/25/20 01/25/20 01/25/20 Range/Units 12:31 12:31 12:31 WBC 12.1 H (4.0-10.0) 10^3/ uL RBC 4.32 (4.1-5.3) 10^6/u L Hgb 11.5 (11.5-15.3) g/dL Hct 37.1 (37.0-47.0) % MCV 85.9 (81-99) fL MCH 26.6 L (28.0-34.0) pg MCHC 31.0 (30.0-36.0) g/dL RDW 16.5 H (12.1-15.1) % Plt Count 406 H (130-400) 10^3/c mm MPV 9.0 (7.4-10.4) fL Neut % (Auto) 76.9 % Lymph % (Auto) 13.2 % [place] % (Auto) 6.4 % Eos % (Auto) 1.6 % Baso % (Auto) 0.5 % Neut # (Auto) 9.33 H (1.8-7.7) 10^3/u L Lymph # (Auto) 1.6 (0.8-4.8) 10^3/u L [place] # (Auto) 0.8 (0.2-0.9) 10^3/u L Eos # (Auto) 0.2 (0.0-0.8) 10^3/u L Baso # (Auto) 0.1 (0.0-0.1) 10^3/u L Nucleated RBC % (a uto) 0 % Nucleated RBCs # 0.0 /100WBC PT 53.20 H (12.1-14.9) SECO NDS INR 5.63 H* (0.8-1.2) APTT 74.3 H (23.9-36.7) SECO NDS Sodium 137 (136-145) mmol/L Potassium 5.4 H (3.5-5.1) mmol/L Chloride 99 (98-107) mmol/L Carbon Dioxide 29 (22-29) mmol/L Anion Gap 14.4 (5-19) BUN 15 (8-23) mg/dL Creatinine 1.0 H (0.5-0.9) mg/dL GFR Calculation Not Reportable Glucose 146 H (65-115) mg/dL Calculated Osmolal ity 287 (285-295) mOsm/k g Calcium 8.9 (8.5-10.5) mg/dL Discharge Plan Discharge Patient Disposition: Home Clinical Impression: Acquired hypercoagulable state, Anticoagulated on Coumadin Knee joint pain Qualifiers: Laterality: right Qualified Code(s): M25.561 - Pain in right knee Condition: Stable Prescriptions: Discontinued warfarin 2 mg tablet 2 mg PO DAILY RF: 0 No Action furosemide 40 mg tablet 40 mg PO QAM RF: 0 metformin 500 mg tablet 500 mg PO BID RF: 0 atorvastatin 10 mg tablet 10 mg PO QPM RF: 0 gabapentin 400 mg capsule 400 mg PO TID RF: 0 spironolactone 25 mg tablet 25 mg PO DAILY RF: 0 carvedilol 3.125 mg tablet 3.125 mg PO BID RF: 0 lorazepam 2 mg tablet 1 - 2 mg PO BID RF: 0 omeprazole 20 mg capsule,delayed release(DR/EC) 20 mg PO DAILY RF: 0 Tylenol Extra Strength 500 mg Tablet 1,000 mg PO PRN RF: 0 digoxin 250 mcg (0.25 mg) tablet 250 mcg PO DAILY RF: 0 Discharge Orders: Discharge Order (Routine); Ordered 01/25/20 Ordered By: Daisy Ortiz Referrals: Danny Khan DO [Primary Care Provider] - Discharge Diet: Usual diet Discharge Activity: Resume usual activity Patient Instructions: Warfarin (By mouth), Knee Pain (ED) Activity Restrictions/Additional Instructions: Stop Coumadin until notified by Dr. Restrepo that you may resume dose Follow-up in his clinic tomorrow for repeat PT/INR Monitor for bleeding Return to the emergency room for any uncontrolled bleeding that you may experience Cool compresses to the right knee several times daily as needed for pain, keep the right leg elevated to help with pain and swelling Avoid knives or use of sharp objects to prevent accidental injury that would lead to bleeding. Coding Level of Care Code ED Customer Engagement Analyst for Oli Ryder Exam Comprehensive
[2020-01-25 12:37] LABS: Basophils # 0.1 10^3/uL (0.0-0.1); Basophils % 0.5 %; Eosinophils # 0.2 10^3/uL (0.0-0.8); Eosinophils % 1.6 %; Hematocrit 37.1 % (37.0-47.0); Hemoglobin 11.5 g/dL (11.5-15.3); Lymphocytes # 1.6 10^3/uL (0.8-4.8); Lymphocytes % 13.2 %; Mean Corpuscular Hemoglobin 26.6 pg (28.0-34.0); Mean Corpuscular Volume 85.9 fL (81-99); Monocytes # 0.8 10^3/uL (0.2-0.9); Monocytes % 6.4 %; Neutrophils # 9.33 10^3/uL (1.8-7.7); Neutrophils % 76.9 %; Nucleated Red Blood Cells % 0 %; Platelet Count 406 10^3/cmm (130-400); Red Blood Count 4.32 10^6/uL (4.1-5.3); Red Cell Distribution Width 16.5 % (12.1-15.1); White Blood Count 12.1 10^3/uL (4.0-10.0)
--- NOTE | 2020-01-25 12:43 | XRR_ITS ---
PROCEDURE INFORMATION: Exam: XR Right Knee Exam date and time: 01/25/2020 1:17 PM Age: 79 years old Clinical indication: Pain; Swelling or effusion of joint; Knee; Right; Additional info: Knee pain and swelling no trauma x 3 days TECHNIQUE: Imaging protocol: XR Right knee. Views: 3 views. COMPARISON: [place] [id number] 06/15/2019 12:02 PM FINDINGS: Bones/joints: The narrowing is present in the medial and patellofemoral compartments suggesting osteoarthritis. Negative for acute bony abnormalities Soft tissues: There is a suprapatellar joint space effusion. Linear calcific densities are present within the meniscal cartilages consistent with chondrocalcinosis. XR/XR knee RT 3V* [id number] IMPRESSION: 1. No acute bone abnormalities. 2. Costochondritis 3. Osteoarthritis
[2020-01-25 12:58] LABS: Partial Thromboplastin Time 74.3 SECONDS (23.9-36.7)
[2020-01-25 13:03] LABS: Anion Gap 14.4 (5-19); Blood Urea Nitrogen 15 mg/dL (8-23); Calcium 8.9 mg/dL (8.5-10.5); Carbon Dioxide 29 mmol/L (22-29); Chloride 99 mmol/L (98-107); Glucose 146 mg/dL (65-115); Osmolality Calculated 287 mOsm/kg (285-295); Potassium 5.4 mmol/L (3.5-5.1); Sodium 137 mmol/L (136-145)
[2020-01-25 13:32] LABS: INR 5.63 (0.8-1.2)
[2020-01-25] MEDS: acetaminophen 500 mg Tablet 1000 MG PO (14:22)
[2020-01-25 14:34] VITALS: BP 128/74; PULSE 72; RESP 18; O2SAT 96
[2020-01-25 14:35] VITALS: BP 124/75; PULSE 72; RESP 18; O2SAT 96
== END 2020-01-25 14:36 | disposition home or self-care (01) ==
PROVIDERS: Emergency Medicine; Emergency Provider Nurse Practitioner Family; PCP Family Medicine
DX: M25.561 Pain in right knee (principal); D68.59 Other primary thrombophilia; Z79.01 Long term (current) use of anticoagulants; I48.91 Unspecified atrial fibrillation; I10 Essential (primary) hypertension
CPT/HCPCS: 12345; 36415; 73562; 80048; 85025; 85610; 85730; 99281; 99283

== ENCOUNTER 2020-12-09 17:20 | Outpatient (CLI) | payer MEDICARE, SELFPAY ==
[2020-12-09 18:56] LABS: INR 1.48 (0.8-1.2)
== END 2020-12-09 17:21 | disposition home or self-care (01) ==
PROVIDERS: PCP Family Medicine; Visit Provider Family Medicine
DX: Z01.89 Encounter for other specified special examinations (principal)
CPT/HCPCS: 85610

== ENCOUNTER 2021-03-02 04:00 | Emergency (ER) | payer MEDICARE, SELFPAY ==
[2021-03-02] VITALS (12 sets, daily range): BP systolic 144–175; BP diastolic 62–96; PULSE 65–81; RESP 15–27; TEMP 36.4–36.6; O2SAT 92–98; BMI 32.9
--- NOTE | 2021-03-02 04:20 | W.ED.DENTAL ---
HPI - Dental/Oral General: Chief complaint: Dental/Oral Stated complaint: BLEEDING TOOTH/ TOOTH PULLED Time Seen by Provider: 03/02/21 04:08 History of Present Illness: HPI Narrative: 80-year-old female who has chronic anticoagulation on warfarin because of mechanical heart valve. She presents with a bleeding upper right molar extraction site in the mouth. She had this performed last week, several days ago. It started bleeding yesterday and continues this morning. It appears to be getting worse. She is soaking a piece of gauze every hour or so MD Complaint: tooth injury Teeth map: 1. Onset (ago): hour(s) Duration: constant Exacerbating factors: nothing Associated symptoms: Reports gum swelling (mild); Denies ear or mastoid pain or fever(s) Review of Systems Const: Denies: fever(s) ENMT: Denies: ear or mastoid pain [facility] ED PFSH: Medical History (Updated 03/02/21 @ 06:14 by Jamshid Bruce DO) Atrial fibrillation GERD (gastroesophageal reflux disease) HTN (hypertension) Surgical History (Updated 06/15/19 @ 15:27 by Matthew Soto MD) H/O mitral valve replacement Family History (Updated 06/15/19 @ 15:29 by Matthew Soto MD) Other Hypertension Social History (Updated 06/15/19 @ 15:29 by Matthew Soto MD) Smoking and tobacco status: never smoked Alcohol intake: never Household members: none Housing: House Physical Exam Const: COMMON NORMALS: no acute distress, patient oriented x3 and alert HENMT: COMMON NORMALS: normocephalic, atraumatic and Normal external nose present HEAD & SCALP: normocephalic and atraumatic FACE & SINUS: normal facial exam NOSE: Normal external nose present and Normal nares present TEETH & GINGIVA IMAGES: 1. Tooth extraction site with mild swelling. Fresh bleeding present. Eye: COMMON NORMALS: Equal, round and reactive pupils present and EOMs intact bilaterally PUPIL: Yes Equal, round and reactive pupils present Chest: COMMONS NORMALS: normal inspection of the chest Neuro: COMMON NORMALS: patient oriented x3 SENSORIUM/ORIENTATION: Yes alert Course Vital Signs: Vital signs: Vital Signs Temperature 97.9 F 03/02/21 04:02 Pulse Rate 81 03/02/21 04:11 Respiratory Rate 15 03/02/21 04:11 Blood Pressure 164/96 03/02/21 04:11 Pulse Oximetry 95 03/02/21 04:11 MDM - Dental/Oral MDM Narrative: Medical decision making narrative: 80-year-old lady, anticoagulated, with a socket hemorrhage following tooth extraction. Bleeding slowed following Surgicel administration with biting down, but increased with removing the Surgicel. She is packed again with Surgicel, this time soaked in TXA. Will reassess in a bit she should be good for discharge Lab Data: Labs: Lab Results 03/02/21 03/02/21 03/02/21 04:30 04:30 04:30 WBC 10.3 10^3/uL H 10 ^3/uL (4.0-10.0) RBC 4.20 10^6/uL 10^6 /uL (4.1-5.3) Hgb 11.2 g/dL L g/dL (11.5-15.3) Hct 36.0 % L % (37.0-47.0) MCV 85.7 fl fl (81-99) MCH 26.7 pg L pg (28.0-34.0) MCHC 31.1 g/dL g/dL (30.0-36.0) RDW 15.3 % H % (12.1-15.1) Plt Count 370 10^3/cmm 10^3 /cmm (130-400) MPV 8.5 fL fL (7.4-10.4) Neut % (Auto) 75.1 % % Lymph % (Auto) 15.4 % % [place] % (Auto) 6.6 % % Eos % (Auto) 1.8 % % Baso % (Auto) 0.6 % % Neut # (Auto) 7.73 10^3/uL H 10 ^3/uL (1.8-7.7) Lymph # (Auto) 1.6 10^3/uL 10^3/ uL (0.8-4.8) [place] # (Auto) 0.7 10^3/uL 10^3/ uL (0.2-0.9) Eos # (Auto) 0.2 10^3/uL 10^3/ uL (0.0-0.8) Baso # (Auto) 0.1 10^3/uL 10^3/ uL (0.0-0.1) Nucleated RBC % (a uto) 0 % % Nucleated RBCs # 0.0 /100WBC /100W BC PT 30.50 SECONDS H S ECONDS (12.1-14.9) INR 2.86 H (0.8-1.2) Sodium 139 mmol/L mmol/L (136-145) Potassium 4.5 mmol/L mmol/L (3.5-5.1) Chloride 99 mmol/L mmol/L (98-107) Carbon Dioxide 32 mmol/L H mmol/ L (22-29) Anion Gap 12.5 (5-19) BUN 11 mg/dL mg/dL (8-23) Creatinine 0.8 mg/dL mg/dL (0.5-0.9) GFR Calculation Not Reportable Glucose 147 mg/dL H mg/dL (65-115) Calculated Osmolal ity 290 mOsm/kg mOsm/ kg (285-295) Calcium 9.0 mg/dL mg/dL (8.5-10.5) Total Bilirubin 0.3 mg/dL mg/dL (0.15-1.2) AST 14 U/L U/L (0-32) ALT 15 U/L U/L (0-33) Alkaline Phosphata se 132 IU/L H IU/L (35-105) Total Protein 6.9 g/dL g/dL (6.6-8.7) Albumin 3.7 g/dL g/dL (3.5-5.2) Globulin 3.2 g/dL g/dL (1.3-4.6) Discharge Plan Discharge Patient Disposition: Home Clinical Impression: Hemorrhage of tooth socket Condition: Stable Prescriptions: No Action furosemide 40 mg tablet 40 mg PO QAM RF: 0 metformin 500 mg tablet 500 mg PO BID RF: 0 atorvastatin 10 mg tablet 10 mg PO QPM RF: 0 gabapentin 400 mg capsule 400 mg PO TID RF: 0 spironolactone 25 mg tablet 25 mg PO DAILY RF: 0 carvedilol 3.125 mg tablet 3.125 mg PO BID RF: 0 lorazepam 2 mg tablet 1 - 2 mg PO BID RF: 0 omeprazole 20 mg capsule,delayed release(DR/EC) 20 mg PO DAILY RF: 0 Tylenol Extra Strength 500 mg Tablet 1,000 mg PO PRN RF: 0 digoxin 250 mcg (0.25 mg) tablet 250 mcg PO DAILY RF: 0 Discharge Orders: Discharge ED (Routine); Ordered 03/02/21 Ordered By: Jamshid Bruce Referrals: Danny Khan, [Primary Care Provider] - 1-3 days Activity Restrictions/Additional Instructions: Leave gauze packing in for the next 2 to 3 hours. When you remove gauze at home, wet with salt water in the mouth prior to removal. Return for continued hemorrhage despite treatment. Coding Level of Care Code ED Cattle Alley Worker for Chg Fwd Exam Expanded Problem Focused
[2021-03-02 04:36] LABS: Basophils # 0.1 10^3/uL (0.0-0.1); Basophils % 0.6 %; Eosinophils # 0.2 10^3/uL (0.0-0.8); Eosinophils % 1.8 %; Hemoglobin 11.2 g/dL (11.5-15.3); Lymphocytes # 1.6 10^3/uL (0.8-4.8); Lymphocytes % 15.4 %; Mean Corpuscular HGB Conc 31.1 g/dL (30.0-36.0); Mean Corpuscular Hemoglobin 26.7 pg (28.0-34.0); Mean Corpuscular Volume 85.7 fl (81-99); Mean Platelet Volume 8.5 fL (7.4-10.4); Monocytes # 0.7 10^3/uL (0.2-0.9); Monocytes % 6.6 %; Neutrophils # 7.73 10^3/uL (1.8-7.7); Neutrophils % 75.1 %; Nucleated Red Blood Cells % 0 %; Platelet Count 370 10^3/cmm (130-400); Red Cell Distribution Width 15.3 % (12.1-15.1); White Blood Count 10.3 10^3/uL (4.0-10.0)
[2021-03-02 04:52] LABS: INR 2.86 (0.8-1.2)
[2021-03-02 04:56] LABS: Alanine Aminotransferase 15 U/L (0-33); Albumin Level 3.7 g/dL (3.5-5.2); Alkaline Phosphatase 132 IU/L (35-105); Anion Gap 12.5 (5-19); Aspartate Amino Transferase 14 U/L (0-32); Blood Urea Nitrogen 11 mg/dL (8-23); Carbon Dioxide 32 mmol/L (22-29); Chloride 99 mmol/L (98-107); Creatinine Clr Calc Pharmacy 60.9021; Globulin 3.2 g/dL (1.3-4.6); Glucose 147 mg/dL (65-115); Osmolality Calculated 290 mOsm/kg (285-295); Potassium 4.5 mmol/L (3.5-5.1); Sodium 139 mmol/L (136-145); Total Bilirubin 0.3 mg/dL (0.15-1.2); Total Protein 6.9 g/dL (6.6-8.7)
[2021-03-02] MEDS: tranexamic acid 1,000 mg/10mL SDV 1000 MG IRRIGATION (06:07)
--- NOTE | 2021-03-02 09:02 | PC.NURSE ---
Pt mouth has new blood running out of her mouth post packing and treatment. Provider notified.
[2021-03-02] MEDS: oxymetazoline 0.05% Nasal Spray 15 mL 2 SPRAY XX (10:33)
[2021-03-02] MEDS: thrombin 5,000 unit SDV 5000 UNIT XX (10:35)
[2021-03-02] MEDS: silver nitrate applicator 2 EACH TOPICAL (10:36)
== END 2021-03-02 19:18 ==
PROVIDERS: Emergency Provider Emergency Medicine; PCP Family Medicine
DX: K91.840 Postprocedural hemorrhage of a digestive system organ or structure following a digestive system procedure (principal); I48.91 Unspecified atrial fibrillation; K21.9 Gastro-esophageal reflux disease without esophagitis; I10 Essential (primary) hypertension; Z79.01 Long term (current) use of anticoagulants; Z95.2 Presence of prosthetic heart valve
CPT/HCPCS: 36430; 80053; 85025; 85610; 86900; 86927; 99284; P9017

== ENCOUNTER 2021-12-03 10:20 | Outpatient (CLI) | payer MEDICARE, SELFPAY ==
[2021-12-03 12:04] LABS: INR 2.78 (0.8-1.2)
== END 2021-12-03 10:21 | disposition home or self-care (01) ==
PROVIDERS: PCP Family Medicine; Visit Provider Family Medicine
DX: Z79.899 Other long term (current) drug therapy (principal)
CPT/HCPCS: 85610

== ENCOUNTER 2022-10-24 10:27 | Emergency (ER) | payer MEDICARE, SELFPAY ==
[2022-10-24 10:42] VITALS: BP 151/79; PULSE 84; RESP 16; O2SAT 96; BMI 34.0
--- NOTE | 2022-10-24 10:45 | XRR_ITS ---
PROCEDURE INFORMATION: Exam: XR Right Knee Exam date and time: 10/24/2022 10:55 AM Age: 82 years old Clinical indication: Injury or trauma; Fall; Blunt trauma; Knee; Right; Additional info: Fall, injury TECHNIQUE: Imaging protocol: Radiologic exam of the right knee. 3image(s) are provided. Views: 3 views. COMPARISON: Right knee radiograph report 01/25/2020. FINDINGS: Bones/joints: There is some trace joint fluid. There is multi compartmental degeneration with spurring and narrowing most pronounced of the patellofemoral and medial compartments. There is some chondrocalcinosis demonstrated. Osseous alignment is maintained.No interval displaced fracture or dislocation is appreciated. Soft tissues: No radiopaque foreign body or subcutaneous emphysema is appreciated. There is slight prominence of the soft tissues overall similar. Other findings: No other significant interval changes are appreciated. XR/XR knee RT 3V* [id number] IMPRESSION: Osseous alignment is maintained with chronic multi compartmental degeneration overall.No interval fracture or dislocation is appreciated.
[2022-10-24] MEDS: HYDROcodone-acetaminophen 5-325 mg Tablet 1 TAB PO (12:24)
[2022-10-24 12:25] VITALS: BP 158/91; PULSE 87; O2SAT 97
[2022-10-24 13:17] LABS: INR 3.03 (0.8-1.2)
[2022-10-24 13:18] LABS: Partial Thromboplastin Time 50.2 SECONDS (23.9-36.7)
--- NOTE | 2022-10-24 16:43 | ED_ITS ---
HPI - Extremity Problem General: Chief complaint: Extremity Injury, Lower Stated complaint: right knee pain post fall Time Seen by Provider: 10/24/22 10:40 Source: patient and family Mode of arrival: wheelchair Limitations: no limitations History of Present Illness: Patient presents emergency department today accompanied by family for evaluation treatment of large hematoma to the right medial knee. Family indicates she had a fall at her assisted living facility on . She had pain at that time but, did not notice such a significant bruise. They bring her in today as the right knee is swollen and has a significant bruise now on the medial portion. Patient has had injury before and developed hematoma and was found to have an INR of 9 requiring admission. Patient does take warfarin daily. Review of Systems General: Reports: 10 or more systems reviewed and unremarkable except in HPI and below PFSH ED PFSH: Medical History Atrial fibrillation GERD (gastroesophageal reflux disease) HTN (hypertension) Surgical History H/O mitral valve replacement Family History Other Hypertension Social History Smoking and tobacco status: never smoked Alcohol intake: never Substance/Drug Use: never Household members: none Housing: House Physical Exam Const: COMMON NORMALS: no acute distress, patient oriented x3 and alert HENMT: COMMON NORMALS: normocephalic, atraumatic and hearing grossly normal bilaterally HEAD & SCALP: normocephalic and atraumatic Eye: COMMON NORMALS: Equal, round and reactive pupils present, EOMs intact bilaterally and conjunctivae normal CONJUNCTIVA: Yes conjunctivae normal PUPIL: Yes Equal, round and reactive pupils present Neck/C-Spine: COMMON NORMALS: full ROM and no JVD Lymph: LYMPHATIC: no lymphadenopathy noted Resp: COMMON NORMALS: normal respiratory effort, No retractions and No use of accessory muscles Cardio: COMMON NORMALS: no JVD and regular rate RATE: regular rate Extremity: NARRATIVE EXTREMITY EXAM: Patient is able to flex and extend both her right hip and right knee. Patient requires some assistance to stand but, does bear weight and ambulates with elbow assist in the room. Patient has generalized tenderness over the area of hematoma without point specific tenderness. No calf tenderness. No popliteal tenderness. Neuro: COMMON NORMALS: patient oriented x3 SENSORIUM/ORIENTATION: Yes alert Psych: COMMON NORMALS: mental status grossly normal, Normal thought process present, cooperative and normal affect THOUGHT PROCESS: Normal thought process present Skin: COMMON NORMALS: no rashes or lesions noted and turgor normal NARRATIVE SKIN EXAM: Patient has a large hematoma-approximately 10+ cm in diameter to the right medial knee. The knee is obviously swollen and there is slight erythema down the right anterior ramires. Patient is edematous bilaterally but, slightly more edema noted to the right lower extremity below her injury. GENERAL SKIN EXAM: no rashes or lesions noted and turgor normal Course Vital Signs: Vital signs: Vital Signs Pulse Rate 87 10/24/22 12:25 Respiratory Rate 16 10/24/22 10:42 Blood Pressure 158/91 10/24/22 12:25 Pulse Oximetry 97 10/24/22 12:25 Oxygen Delivery Me thod Room Air 10/24/22 12:25 MDM - Extremity (Nontraumatic) Medical Decision Making Patient's INR today is 3. This is still somewhat therapeutic given that she is on warfarin of varying doses on different days. Patient's x-ray was read negative for signs of acute fracture but with significant arthritis found. Explained that injuries with arthritis can last longer and hurt worse than other joints. Patient may be stiff and sore for quite some time. Patient does have a large hematoma but, I do not think it is acutely hemorrhaging. She also has increased swelling due to her sitting in a wheelchair noted to the right lower extremity secondary to all the inflammation from her knee injury. We discussed the importance of having it up and elevated for the next week or so to help prevent the swelling. There is some erythema that is starting to develop on the anterior ramires and, as I have concerns for her underlying health condition, we will go ahead and start prophylactic antibiotics for cellulitis. She is to have a follow-up appointment with her primary care provider at the beginning of the week for a general recheck or, should be seen and reevaluated sooner for any acute or worsening changes. Differential Diagnosis Likely cellulitis, superficial thrombophlebitis, lower extremity edema and deep vein thrombosis of lower extremity Lab Data Radiology Impressions Knee X-Ray 10/24/22 10:45 IMPRESSION: Osseous alignment is maintained with chronic multi compartmental degeneration overall.No interval fracture or dislocation is appreciated. Laboratory Results PT 32.60 SECONDS (12.1-14.9) H 10/24/22 12:57 INR 3.03 (0.8-1.2) H 10/24/22 12:57 APTT 50.2 SECONDS (23.9-36.7) H 10/24/22 12:57 Discharge Plan Discharge Patient Disposition: Home Clinical Impression: Contusion of knee, Traumatic hematoma of right knee Condition: Stable Prescriptions: New doxycycline hyclate 100 mg tablet 100 mg PO BID 7 Days Qty: 14 0RF No Action furosemide 40 mg tablet 40 mg PO BID metformin 500 mg tablet 500 mg PO DAILY atorvastatin 10 mg tablet 10 mg PO QPM gabapentin 400 mg capsule 400 mg PO TID spironolactone 25 mg tablet 25 mg PO DAILY carvedilol 3.125 mg tablet 3.125 mg PO BID lorazepam 2 mg tablet 1 - 2 mg PO BID Rx Instructions: pt states she takes 2 mg po at bedtime omeprazole 20 mg capsule,delayed release(DR/EC) 20 mg PO DAILY warfarin 3 mg Tablet 3 mg PO .WED, , , SAT warfarin 2 mg Tablet 2 mg PO .MON, WEDS, FRI Vitamin D3 25 mcg (1,000 unit) Capsule 25 mcg PO DAILY acetaminophen [Tylenol Extra Strength] 500 mg Tablet 1,000 mg PO PRN digoxin 250 mcg (0.25 mg) tablet 250 mcg PO DAILY Discharge Orders: Discharge ED (Routine); Ordered 10/24/22 Ordered By: Jeri Aviles Referrals: Danny Khan DO [Primary Care Provider] - Discharge Diet: Usual diet Discharge Activity: Increase activity as tolerated Patient Instructions: Hematoma (ED) Activity Restrictions/Additional Instructions: The radiologist has indicated no signs of any acute bony fractures but, does agree you have quite a bit of arthritis in this joint. For that reason, anytime there is any type of injury to this joint, pain may be worsened and healing time prolonged. You do have a large hematoma in the area of the impact from your fall but, when checking your coagulation speeds, you are a little slow but, is not significant enough to concern for hemorrhage. Your INR today is 3. The last time you had to be admitted after developing a large hematoma your INR was 9. I have started you on some prophylactic antibiotics to make sure that the erythema on your right lower extremity does not worsen into a significant skin cellulitis. You are developing swelling because of the injury and you need to elevate your extremity regularly. This will help alleviate the swelling that is starting to accumulate down into your lower leg and ankle. Please have a fol low-up with your primary care doctor on Wednesday or Wednesday for a general recheck. Coding Level of Care Code ED Livestock Yard Attendant for Oli Ryder
== END 2022-10-24 14:09 | disposition home or self-care (01) ==
PROVIDERS: Emergency Provider Physician Assistant; PCP Family Medicine
DX: S80.01XA Contusion of right knee, initial encounter (principal); Z79.01 Long term (current) use of anticoagulants; I10 Essential (primary) hypertension; W19.XXXA Unspecified fall, initial encounter; Y92.099 Unspecified place in other non-institutional residence as the place of occurrence of the external cause
CPT/HCPCS: 36415; 73562; 85610; 85730; 99284

== ENCOUNTER 2024-08-05 15:28 | Emergency (ER) | payer MEDICARE, MEDICAID, SELFPAY ==
[2024-08-05 15:46] VITALS: BP 151/94; PULSE 94; RESP 18; TEMP 36.7; O2SAT 100
--- NOTE | 2024-08-05 15:53 | PC.PHAR ---
Pt is from [facility]
[2024-08-05 15:57] LABS: Basophils % 0.4 %; Eosinophils # 0.2 10^3/uL (0.0-0.8); Eosinophils % 1.4 %; Lymphocytes # 1.4 10^3/uL (0.8-4.8); Lymphocytes % 13.1 %; Mean Corpuscular HGB Conc 30.3 g/dL (30-55); Mean Corpuscular Hemoglobin 24.9 pg (27-33); Mean Corpuscular Volume 82.4 fl (85-98); Mean Platelet Volume 8.5 fL (7.4-10.4); Monocytes # 0.7 10^3/uL (0.2-0.9); Monocytes % 6.3 %; Neutrophils # 8.14 10^3/uL (1.8-7.7); Neutrophils % 78.2 %; Nucleated Red Blood Cells % 0 %; Platelet Count 376 10^3/cmm (157-399); Red Blood Count 4.25 10^6/uL (3.85-5.65); Red Cell Distribution Width 17.5 % (12.1-15.1)
[2024-08-05 16:11] LABS: INR 2.52 (0.8-1.2)
[2024-08-05 16:15] LABS: Alanine Aminotransferase 10 U/L (0-33); Albumin Level 3.8 g/dL (3.5-5.2); Alkaline Phosphatase 222 U/L (35-105); Anion Gap 14.3 (5-19); Aspartate Amino Transferase 13 U/L (0-32); Blood Urea Nitrogen 18 mg/dL (8-23); Calcium 9.1 mg/dL (8.5-10.5); Carbon Dioxide 32 mmol/L (22-29); Chloride 93 mmol/L (98-107); Digoxin 1.2 ng/mL (0.6-1.2); Globulin 4.1 g/dL (1.3-4.6); Glucose 208 mg/dL (65-115); Osmolality Calculated 288 mOsm/kg (285-295); Potassium 4.3 mmol/L (3.5-5.1); Sodium 135 mmol/L (136-145); Total Bilirubin 0.4 mg/dL (0.15-1.2); Total Protein 7.9 g/dL (6.6-8.7)
--- NOTE | 2024-08-05 16:21 | W.ED.RECABL ---
HPI - Recheck/Abnormal Lab/Rx General: Chief Complaint: Recheck/Abnormal Lab/Rx Stated Complaint: abnormal labs Time Seen by Provider: 08/05/24 15:48 History of Present Illness: 83-year-old female with a history of atrial fibrillation and chronic anticoagulation on warfarin, hypertension, hyperlipidemia and GERD who presents to the emergency room with concern that her INR was elevated. EMS reports that INR was checked and it was 14 yesterday. She has no signs of bleeding. No gum bleeding. No bruising. No petechiae. No altered mental status. No focal motor deficits. Related Data Home Medications ?Medication ?Instructions ?Recorded ?Confirmed atorvastatin 10 mg tablet 10 mg PO QPM 06/15/19 08/05/24 carvedilol 3.125 mg tablet 3.125 mg PO BID 06/15/19 08/05/24 furosemide 40 mg tablet 40 mg PO QAM 06/15/19 08/05/24 gabapentin 400 mg capsule 400 mg PO TID 06/15/19 08/05/24 omeprazole 20 mg capsule,delayed 20 mg PO DAILY 06/15/19 08/05/24 release spironolactone 25 mg tablet 25 mg PO DAILY 06/15/19 08/05/24 cholecalciferol (vitamin D3) 25 25 mcg PO DAILY 03/02/21 08/05/24 mcg (1,000 unit) capsule (Vitamin D3) warfarin 2 mg tablet See Rx Instructions .Route .COMPLEX 03/02/21 08/05/24 Lactobacillus rhamnosus GG 10 1 cap PO DAILY PRN while on 08/05/24 08/05/24 billion cell capsule (Culturelle) antibiotics acetaminophen 325 mg tablet 650 mg PO QID PRN pain or fever 08/05/24 08/05/24 digoxin 125 mcg (0.125 mg) tablet 125 mcg PO DAILY 08/05/24 08/05/24 furosemide 20 mg tablet 20 mg PO .@1300 08/05/24 08/05/24 glyburide 5 mg tablet 5 mg PO QAM 08/05/24 08/05/24 lorazepam 1 mg tablet 1 mg PO BEDTIME sleep 08/05/24 08/05/24 sitagliptin phosphate 100 mg 100 mg PO DAILY 08/05/24 08/05/24 tablet (Januvia) warfarin 1 mg tablet See Rx Instructions .Route .COMPLEX 08/05/24 08/05/24 Allergies Allergy/AdvReac Type Severity Reaction Status Date / Time No Known Allergies Allergy Verified 10/24/22 10:50 Review of Systems Narrative: Constitutional symptoms: Negative except as documented in HPI. Skin symptoms: Negative except as documented in HPI. Eye symptoms: Negative except as documented in HPI. ENMT symptoms: Negative except as documented in HPI. Respiratory symptoms: Negative except as documented in HPI. Cardiovascular symptoms: Negative except as documented in HPI. Gastrointestinal symptoms: Negative except as documented in HPI. Genitourinary symptoms: Negative except as documented in HPI. Musculoskeletal symptoms: Negative except as documented in HPI. Neurologic symptoms: Negative except as documented in HPI. Psychiatric symptoms: Negative except as documented in HPI. Endocrine symptoms: Negative except as documented in HPI. PFSH ED PFSH: Medical History Atrial fibrillation GERD (gastroesophageal reflux disease) HTN (hypertension) Surgical History H/O mitral valve replacement Family History Other Hypertension Social History Smoking and tobacco/nicotine status: never used tobacco/nicotine Alcohol intake: never Substance/Drug Use: never Household members: none Housing: House Physical Exam Narrative: EXAM NARRATIVE: General: Alert, no acute distress. Skin: Warm, dry. Head: Normocephalic, atraumatic. Neck: Supple, trachea midline. Eye: Extraocular movements are intact. Ears, nose, mouth and throat: mucosa moist. Cardiovascular: Regular, Normal peripheral perfusion. Respiratory: Lungs are clear to auscultation, respirations are non-labored, breath sounds are equal, Symmetrical chest wall expansion. Gastrointestinal: Soft, Nontender, Non distended Musculoskeletal: Normal ROM, no deformity. Neurological: Alert and oriented, No focal neurological deficit observed. Psychiatric: Cooperative, appropriate mood & affect. Course Vital Signs: Vital signs: Vital Signs Temperature 98.1 F 08/05/24 15:46 Pulse Rate 94 08/05/24 15:46 Respiratory Rate 18 08/05/24 15:46 Blood Pressure 151/94 08/05/24 15:46 Pulse Oximetry 100 08/05/24 15:46 Oxygen Delivery Me thod Room Air 08/05/24 15:46 MDM - Recheck/Abnormal Lab/Rx Medical Decision Making Lab Review: Laboratory results were reviewed and interpreted by myself the emergency room physician. Lab work is unremarkable. Hemoglobin stable at 10.6. Creatinine mildly elevated at 1.2 over her baseline. INR is therapeutic at 2.5. I reviewed the patient's medical record. Reexamination: Patient remained stable. No increased work of breathing. No altered mental status. No focal motor deficits. Assessment and plan: Chronic anticoagulation on warfarin Therapeutic INR - Discharged home - Discussed findings and plan with patient. Answered any questions. - Evaluation and treatment of this problem were appropriate in the emergency setting Lab Data 08/05/24 15:50 08/05/24 15:50 Laboratory Results WBC 10.40 10^3/uL (3.29-11.43) 08/05/24 15:50 RBC 4.25 10^6/uL (3.85-5.65) 08/05/24 15:50 Hgb 10.60 g/dL (11.27-16.99) L 08/05/24 15:50 Hct 35.0 % (36-47) L 08/05/24 15:50 MCV 82.4 fl (85-98) L 08/05/24 15:50 MCH 24.9 pg (27-33) L 08/05/24 15:50 MCHC 30.3 g/dL (30-55) 08/05/24 15:50 RDW 17.5 % (12.1-15.1) H 08/05/24 15:50 Plt Count 376 10^3/cmm (157-399) 08/05/24 15:50 MPV 8.5 fL (7.4-10.4) 08/05/24 15:50 Neut % (Auto) 78.2 % 08/05/24 15:50 Lymph % (Auto) 13.1 % 08/05/24 15:50 [place] % (Auto) 6.3 % 08/05/24 15:50 Eos % (Auto) 1.4 % 08/05/24 15:50 Baso % (Auto) 0.4 % 08/05/24 15:50 Neut # (Auto) 8.14 10^3/uL (1.8-7.7) H 08/05/24 15:50 Lymph # (Auto) 1.4 10^3/uL (0.8-4.8) 08/05/24 15:50 [place] # (Auto) 0.7 10^3/uL (0.2-0.9) 08/05/24 15:50 Eos # (Auto) 0.2 10^3/uL (0.0-0.8) 08/05/24 15:50 Baso # (Auto) 0.0 10^3/uL (0.0-0.1) 08/05/24 15:50 Nucleated RBC % (auto) 0 % 08/05/24 15:50 Nucleated RBCs # 0.0 /100WBC 08/05/24 15:50 PT 28.70 SECONDS (12.1-14.9) H 08/05/24 15:50 INR 2.52 (0.8-1.2) H 08/05/24 15:50 Sodium 135 mmol/L (136-145) L 08/05/24 15:50 Potassium 4.3 mmol/L (3.5-5.1) 08/05/24 15:50 Chloride 93 mmol/L (98-107) L 08/05/24 15:50 Carbon Dioxide 32 mmol/L (22-29) H 08/05/24 15:50 Anion Gap 14.3 (5-19) 08/05/24 15:50 BUN 18 mg/dL (8-23) 08/05/24 15:50 Creatinine 1.2 mg/dL (0.5-0.9) H 08/05/24 15:50 GFR Calculation Not Reportable 08/05/24 15:50 Glucose 208 mg/dL (65-115) H 08/05/24 15:50 Calculated Osmolality 288 mOsm/kg (285-295) 08/05/24 15:50 Calcium 9.1 mg/dL (8.5-10.5) 08/05/24 15:50 Total Bilirubin 0.4 mg/dL (0.15-1.2) 08/05/24 15:50 AST 13 U/L (0-32) 08/05/24 15:50 ALT 10 U/L (0-33) 08/05/24 15:50 Alkaline Phosphatase 222 U/L (35-105) H 08/05/24 15:50 Total Protein 7.9 g/dL (6.6-8.7) 08/05/24 15:50 Albumin 3.8 g/dL (3.5-5.2) 08/05/24 15:50 Globulin 4.1 g/dL (1.3-4.6) 08/05/24 15:50 Digoxin 1.2 ng/mL (0.6-1.2) 08/05/24 15:50 No radiology studies performed this visit Discharge Plan Discharge Patient Disposition: Home Clinical Impression: Chronic anticoagulation Condition: Stable Prescriptions: No Action furosemide 40 mg tablet 40 mg PO QAM atorvastatin 10 mg tablet 10 mg PO QPM gabapentin 400 mg capsule 400 mg PO TID spironolactone 25 mg tablet 25 mg PO DAILY carvedilol 3.125 mg tablet 3.125 mg PO BID omeprazole 20 mg capsule,delayed release(DR/EC) 20 mg PO DAILY warfarin 2 mg Tablet See Rx Instructions .ROUTE .COMPLEX Rx Instructions: Take 2 mg by mouth daily except Wednesday and Wednesday. cholecalciferol (vitamin D3) [Vitamin D3] 25 mcg (1,000 unit) Capsule 25 mcg PO DAILY acetaminophen 325 mg Tablet 650 mg PO QID PRN (Reason: pain or fever) glyburide 5 mg tablet 5 mg PO QAM digoxin 125 mcg (0.125 mg) tablet 125 mcg PO DAILY furosemide 20 mg tablet 20 mg PO .@1300 lorazepam 1 mg tablet 1 mg PO BEDTIME warfarin 1 mg tablet See Rx Instructions .ROUTE .COMPLEX Rx Instructions: Take 1 mg by mouth on Wednesday and Wednesday. Culturelle 10 billion cell Capsule 1 cap PO DAILY PRN (Reason: while on antibiotics) Januvia 100 mg tablet 100 mg PO DAILY Discharge Orders: Discharge ED (Routine); Ordered 08/05/24 Ordered By: Etelvina Musa Referrals: Danny Khan, [Primary Care Provider] - Discharge Diet: Usual diet Discharge Activity: Increase activity as tolerated Patient Instructions: Anticoagulation Therapy, Opioid Safety, Pain Management Activity Restrictions/Additional Instructions: Thank you for choosing [facility] for your healthcare needs today. Please realize this is an emergency room and that we are providing you with a medical screening exam and this may not be complete and all inclusive of all the testing and or work up that you may need to determine your ailment or severity of your illness. You have been screened and evaluated and felt safe for discharge. Health conditions do change or evolve sometimes and as such it is important that you follow up with your Primary Doctor to be re checked, 3-5 days is a general good time frame for follow up. You are always welcome to return to the ED for re assessment if your symptoms are worsening or you have new concerns Print Language: Kazakh Coding Level of Care Code ED Mercury Cell Cleaner for Oli Ryder
[2024-08-05 16:45] VITALS: BP 139/79; PULSE 91; O2SAT 95
[2024-08-05 17:07] VITALS: BP 146/82; PULSE 92; O2SAT 95
[2024-08-05 17:19] VITALS: BP 146/82; PULSE 92; O2SAT 95
== END 2024-08-05 17:17 | disposition home or self-care (01) ==
PROVIDERS: Family Medicine; Emergency Provider Emergency Medicine; PCP Family Medicine
DX: Z79.01 Long term (current) use of anticoagulants (principal); I10 Essential (primary) hypertension; E78.5 Hyperlipidemia, unspecified
CPT/HCPCS: 36415; 80053; 80162; 85025; 85610; 99283